=== PATIENT | male | born 1995 | race Caucasian/White ===

== ENCOUNTER 2021-03-03 13:15 | Emergency (ER) | payer OTHER, SELFPAY ==
[2021-03-03 13:23] VITALS: BP 122/86; PULSE 72; RESP 16; TEMP 36.2; O2SAT 99; BMI 21.6
[2021-03-03] MEDS: Ondansetron ODT 4 MG TAB.RAPDIS TRANSLINGU (17:14)
--- NOTE | 2021-03-03 17:15 | PC.NURSE ---
PT WAS SEEN BY THE [employer]. PLAN IS TO GO TO [facility]
--- NOTE | 2021-03-03 17:15 | MHC.RECOVSUP ---
? Reason for consult Recovery Support o [place] [facility] [place] [facility] [place] o Identified substance use concern: Fentanyl & Heroin - Withdrawal - Seeking ATS (detox) - Support ? Intervention: o ATS bed search started/completed/in process o Community resources provided o Harm reduction discussion ? Plan: o Referral to [facility] o Follow up tomorrow o Patient to follow up with [facility] after discharge ? Additional information: Met with Patient and patient stated that he was really sick and needed help... Sary has a bed at [facility] pending intake. [facility] will be calling patient Mom cell phone..([phone]) to do an intake and be picked up in the Morning. Patient was given resources to Follow up after detox to help in his recovery.
--- NOTE | 2021-03-03 17:16 | ED_ITS ---
HPI - Psych General Chief Complaint: ETOH/Substance Use Stated Complaint: WITHDRAWALS Time Seen by Provider: 03/03/21 17:00 Source: patient and family Mode of arrival: ambulatory Limitations: no limitations History of Present Illness HPI Narrative: 25-year-old male here seeking detox. Patient tells me he has been sniffing heroin 3 bundles per day. Last use was this morning at 08:00. He occasionally uses cocaine. No additional substance use and no alcohol use. No suicidal thoughts. Patient is here looking for detox placement. No physical complaints with exception of some vomiting and diarrhea with abdominal cramping at home which he contributes to withdrawal symptoms Related Data Previous Rx's Medication Instructions Recorded ondansetron 4 mg disintegrating 4 mg PO Q6H PRN #14 tab 03/03/21 tablet Allergies Allergy/AdvReac Type Severity Reaction Status Date / Time No Known Allergies Allergy Verified 03/03/21 17:00 Review of Systems Review of Systems: Yes all other systems are reviewed and are negative Constitutional: Constitutional: Reports no additional constitutional complaints, Denies body ache(s), Denies chills, Denies fever(s), Denies headache(s) and Denies weakness Eyes: Eyes: Reports no additional eye complaints and Denies change in vision ENT: Reports system reviewed and no additional complaints, except as documented, Denies dizziness, Denies headache(s), Denies nasal congestion, Denies nasal discharge and Denies neck pain Cardiovascular: Cardiovascular: Reports no additional cardiovascular complaints, Denies chest pain, Denies leg edema and Denies dyspnea Respiratory: Respiratory: Reports no additional respiratory complaints, Denies cough and Denies dyspnea Gastrointestinal: Gastrointestinal: Reports no additional gastrointestinal complaints, Reports abdominal pain, Reports diarrhea, Reports nausea and Reports vomiting Genitourinary: Genitourinary: Denies urinary incontinence Musculoskeletal: Musculoskeletal: Reports no additional musculoskeletal complaints, Denies back pain, Denies arthralgias, Denies joint swelling, Denies neck pain, Denies numbness and Denies tingling Integumentary/Breasts: Skin/Breast: Reports system reviewed and no additional complaints, except as docu and Denies rash Neurologic: Reports system reviewed and no additional complaints, except as documented, Denies Abnormal speech present, Denies dizziness, Denies headache(s), Denies numbness, Denies tingling and Denies weakness PMFSH Past Medical History Attestation statement: The following information was validated with the patient. Source: old records reviewed and nursing notes reviewed Social History Social History Advance Directives: No Advance Directives Information Provided: No Physical Exam Vital Signs: Vital Signs: Last Vital Signs Temp 97.2 F 03/03/21 13:23 Pulse 72 03/03/21 13:23 Resp 16 03/03/21 13:23 BP 122/86 03/03/21 13:23 Pulse Ox 99 03/03/21 13:23 Body Mass Index 21.6 Const: General: cooperative, healthy appearing, comfortable and no acute distress Orientation/consciousness: patient oriented x3 Limitations: no limitations HENMT: Head: Yes normal to inspection Ears: hearing grossly normal bilaterally General nose exam: Normal external nose present Face and sinus: Yes normal facial exam Mouth: Normal oral and palatal mucosa present Throat: Yes posterior oropharynx normal Eyes: General: appearance normal, both eyes and all related structures Pupils: Equal, round and reactive pupils present Neck: Neck: Yes normal visual inspection Chest: Chest palpation & inspection: normal inspection of the chest Resp: Effort & Inspection: normal respiratory effort Auscultation: clear to auscultation bilaterally Cardio: Rate: regular rate Rhythm: regular rhythm Peripheral pulses: Peripheral pulses 2+ throughout GI: Inspection: Yes normal to inspection Palpation (GI): Soft to palpation and nontender Auscultation: normal bowel sounds Back/Spine/Pelvis: Thoracic/Lumbar Spine: thoracic and lumbar spine normal to inspection Skin: General skin exam: no rashes or lesions noted Neuro: General: patient oriented x3, no focal motor deficits and normal sensation to monofilament Cranial nerves: Yes Equal, round and reactive pupils present Cognition (Neuro): normal cognition Speech: No Abnormal speech present Gait exam (Neuro): Normal gait present Motor exam (neuro): 5/5 motor strength present throughout Extrem: General: Yes normal to inspection Course Course Course Narrative: 25-year-old male here seeking detox for heroin. Complaining of some withdrawal symptoms which he says are abdominal cramping, vomiting and diarrhea. Given sublingual Zofran and tolerating p.o. fluids. Patient was seen by the head field hockey coach. Plan for him to be discharged home and do an intake for ad care in the morning. Reviewed worrisome signs and symptoms of when to return to the emergency department. Comfortable discharge home. MDM - Psych Medical Records Attestation: I reviewed the patient's medical records. Lab Data Attestation: I reviewed the patient's lab results. Discharge Plan Discharge Clinical Impression: Opioid use disorder Patient Disposition: Home, Self-Care Instructions: Opioid Use Disorder (ED) Additional Instructions: follow-up with detox list Prescriptions: New ondansetron 4 mg tablet,disintegrating 4 mg PO Q6H PRN (Reason: nausea and vomiting) Qty: 14 RF: 0 Referrals: Physician,None [Primary Care Provider] - 2 days
== END 2021-03-03 17:16 | disposition home or self-care (01) ==
PROVIDERS: Emergency Provider Internal Medicine
DX: F11.988 Opioid use, unspecified with other opioid-induced disorder (principal); R11.10 Vomiting, unspecified; R10.9 Unspecified abdominal pain
CPT/HCPCS: 99282; 99283